=== PATIENT | male | born 1965 | race Two or more races ===

== ENCOUNTER 2019-04-20 18:29 | Emergency (ER) | payer MEDICAID ==
[~2019-04-20] VITALS: Ht 160 cm; Wt 83.5 kg
[2019-04-20] MEDS ORDERED: PROPRANOLOL HCL10 MG ORAL (18:41)
[2019-04-20] MEDS ORDERED: SPIRONOLACTONE100 MG ORAL (18:41)
[2019-04-20] MEDS ORDERED: FUROSEMIDE20 M1 ORAL (18:41)
--- NOTE | 2019-04-20 18:43 | NUR ---
ED Nurse Note: Pt walked into ED from home c/o abdominal pain, nausea, cough, diarrhea x 1 week. Pt says he threw up once a week ago, but not since. Pt hasn't been able to eat as much as normal. He says he just started 4 new medications a week ago including spironolactone, lasix, daily-vte, and propanolol. Pt placed on case monitor. Respirations even and unlabored on room air. A+Ox4. at bedside.
[2019-04-20] MEDS ORDERED: DAILY VITE1 EACH ORAL (18:47)
--- NOTE | 2019-04-20 18:55 | NUR ---
ED Nurse Note: Pt's sinus merry on the monitor @ 49-51 bpm
[2019-04-20 18:59] VITALS: BP 115/68
--- NOTE | 2019-04-20 19:09 | NUR ---
HAND-OFF: Report given to PRANAY Contreras.
--- NOTE | 2019-04-20 19:09 | NUR ---
ED Nurse Note: Received report from PRANAY Smith.
--- NOTE | 2019-04-20 19:10 | NUR ---
ED Nurse Note: Patient provided with urinal for urine sample, pt stated unable to provide urine at this time.
[2019-04-20 19:20] LABS: HEMATOCRIT 46.6 % (42.0-52.0); HEMOGLOBIN 16.5 G/DL (14.2-18.0); MEAN CORPUSCULAR VOLUME 92 FL (80-99); PLATELET COUNT 99 K/UL (150-450); RED BLOOD COUNT 5.09 M/UL (4.70-6.10); RED CELL DISTRIBUTION WIDTH 12.2 % (11.6-14.8); WHITE BLOOD COUNT 14.7 K/UL (4.8-10.8)
[2019-04-20 19:44] LABS: ANION GAP 5 mmol/L (5-15); BLOOD UREA NITROGEN 15 mg/dL (7-18); CALCIUM 8.2 MG/DL (8.5-10.1); CARBON DIOXIDE 24 MMOL/L (21-32); CHLORIDE 108 MMOL/L (98-107); CREATININE 0.8 MG/DL (0.55-1.30); POTASSIUM 4.8 MMOL/L (3.5-5.1); SODIUM 137 MMOL/L (136-145)
[2019-04-20 19:58] LABS: ALANINE AMINOTRANSFERASE 39 U/L (12-78); ALBUMIN 2.3 G/DL (3.4-5.0); ALBUMIN/GLOBULIN RATIO 0.7 (1.0-2.7); ALKALINE PHOSPHATASE 223 U/L (46-116); ASPARTATE AMINO TRANSFERASE 57 U/L (15-37); BILIRUBIN,TOTAL 2.6 MG/DL (0.2-1.0)
[2019-04-20 20:02] LABS: BILIRUBIN,DIRECT 0.9 MG/DL (0.0-0.3)
--- NOTE | 2019-04-20 20:52 | NUR ---
ED Nurse Note: urine collected and sent to lab.
[2019-04-20 21:07] LABS: APPEARANCE,URINE CLEAR; BILIRUBIN, URINE NEGATIVE (NEGATIVE); GLUCOSE, URINE (UA) NEGATIVE (NEGATIVE); KETONES,URINE NEGATIVE (NEGATIVE); LEUKOCYTE ESTERASE ,URINE NEGATIVE (NEGATIVE); NITRITE,URINE NEGATIVE (NEGATIVE); PH,URINE 5 (4.5-8.0); PROTEIN,URINE NEGATIVE (NEGATIVE); UROBILINOGEN,URINE 1 MG/DL (0.0-1.0)
[2019-04-20 21:09] LABS: COLOR,URINE YELLOW
--- NOTE | 2019-04-20 21:45 | Emergency Room Report ---
History of Present Illness General Chief Complaint: Abdominal Pain Source: Patient (Fidel Odonnell M.D.) Source: Patient (Gulshan Mahmood MD) Present Illness HPI 54-year-old male presents with acute abdominal pain generalized, with diarrhea, no blood, abdominal pain described as achy no known aggravating relieving factors severity is mild, intermittent, patient presents for evaluation (Gulshan Mahmood MD) Allergies: Coded Allergies: No Known Allergies (Unverified , 04/20/19) Patient History Past Medical History: see triage record Reviewed Nursing Documentation: PMH: Agreed; PSxH: Agreed (Gulshan Mahmood MD) Nursing Documentation-PMH Hx Hypertension: Yes (Fidel Odonnell M.D.) Review of Systems All Other Systems: negative except mentioned in HPI (Gulshan Mahmood MD) Physical Exam Vital Signs Date Time Temp Pulse Resp B/P (MAP) Pulse Ox O2 Delivery O2 Flow Rate FiO2 04/20/19 18:35 98.1 56 17 111/71 (84) 95 Room Air (Fidel Odonnell M.D.) Vital Signs Date Time Temp Pulse Resp B/P (MAP) Pulse Ox O2 Delivery O2 Flow Rate FiO2 04/20/19 18:35 98.1 56 17 111/71 (84) 95 Room Air Sp02 EP Interpretation: reviewed, normal General Appearance: well appearing, no apparent distress, alert Head: normocephalic, atraumatic Eyes: bilateral eye PERRL, bilateral eye EOMI ENT: uvula midline, moist mucus membranes Neck: supple, thyroid normal, supple/symm/no masses Respiratory: lungs clear, no respiratory distress, no retraction, no accessory muscle use Cardiovascular #1: normal peripheral pulses, regular rate, rhythm, no edema, no gallop, no murmur Gastrointestinal: non tender, soft, no guarding, no rebound Musculoskeletal: normal inspection Neurologic: alert, oriented x3 Psychiatric: mood/affect normal Skin: no rash, warm/dry (Gulshan Mahmood MD) Medical Decision Making Diagnostic Impression: Primary Impression: Enteritis ER Course 54-year-old male presents with abdominal pain x1 day, signout was received from Dr. Odonnell Patient found to have enteritis on CT, patient given Augmentin here Abdominal exam at 12:30 AM, abdomen is soft nontender no rebound no guarding Will provide patient with 10 days of Augmentin Disposition home with return precautions Laboratory Tests Test 04/20/19 19:05 04/20/19 20:49 White Blood Count 14.7 K/UL (4.8-10.8) H Red Blood Count 5.09 M/UL (4.70-6.10) Hemoglobin 16.5 G/DL (14.2-18.0) Hematocrit 46.6 % (42.0-52.0) Mean Corpuscular Volume 92 FL (80-99) Mean Corpuscular Hemoglobin 32.5 PG (27.0-31.0) H Mean Corpuscular Hemoglobin Concent 35.4 G/DL (32.0-36.0) Red Cell Distribution Width 12.2 % (11.6-14.8) Platelet Count 99 K/UL (150-450) L Mean Platelet Volume 8.7 FL (6.5-10.1) Neutrophils (%) (Auto) % (45.0-75.0) Lymphocytes (%) (Auto) % (20.0-45.0) Monocytes (%) (Auto) % (1.0-10.0) Eosinophils (%) (Auto) % (0.0-3.0) Basophils (%) (Auto) % (0.0-2.0) Differential Total Cells Counted 100 Neutrophils % (Manual) 80 % (45-75) H Lymphocytes % (Manual) 7 % (20-45) L Monocytes % (Manual) 9 % (1-10) Eosinophils % (Manual) 0 % (0-3) Basophils % (Manual) 0 % (0-2) Band Neutrophils 4 % (0-8) Platelet Estimate Decreased L Platelet Morphology Normal Red Blood Cell Morphology Normal Sodium Level 137 MMOL/L (136-145) Potassium Level 4.8 MMOL/L (3.5-5.1) Chloride Level 108 MMOL/L (98-107) H Carbon Dioxide Level 24 MMOL/L (21-32) Anion Gap 5 mmol/L (5-15) Blood Urea Nitrogen 15 mg/dL (7-18) Creatinine 0.8 MG/DL (0.55-1.30) Estimate Glomerular Filtration Rate > 60 mL/min (>60) Glucose Level 124 MG/DL (74-106) H Calcium Level 8.2 MG/DL (8.5-10.1) L Total Bilirubin 2.6 MG/DL (0.2-1.0) H Direct Bilirubin 0.9 MG/DL (0.0-0.3) H Aspartate Amino Transferase (AST) 57 U/L (15-37) H Alanine Aminotransferase (ALT) 39 U/L (12-78) Alkaline Phosphatase 223 U/L (46-116) H Total Protein 5.7 G/DL (6.4-8.2) L Albumin 2.3 G/DL (3.4-5.0) L Globulin 3.4 g/dL Albumin/Globulin Ratio 0.7 (1.0-2.7) L Lipase 274 U/L (73-393) Urine Color Yellow Urine Appearance Clear Urine pH 5 (4.5-8.0) Urine Specific [place] 1.010 (1.005-1.035) Urine Protein Negative (NEGATIVE) Urine Glucose (UA) Negative (NEGATIVE) Urine Ketones Negative (NEGATIVE) Urine Blood 1+ (NEGATIVE) H Urine Nitrite Negative (NEGATIVE) Urine Bilirubin Negative (NEGATIVE) Urine Urobilinogen 1 MG/DL (0.0-1.0) H Urine Leukocyte Esterase Negative (NEGATIVE) Urine RBC 0-2 /HPF (0 - 0) H Urine WBC 0-2 /HPF (0 - 0) Urine Squamous Epithelial Cells Occasional /LPF Urine Bacteria Few /HPF (NONE) (Gulshan Mahmood MD) CT/MRI/US Diagnostic Results CT/MRI/US Diagnostic Results : Impression Procedure: CT Abdomen Pelvis w/Contrast CT ABDOMEN + PELVIS With Contrast: Morphologic features of cirrhosis with stigmata of portal venous hypertension, including upper abdominal portosystemic venous collaterals and splenomegaly. Nonspecific thickening of the duodenum and ascending colon may be related to nonspecific duodenitis/colitis or portal enterocolopathy/enterocolitis. No appendicitis, diverticulitis, or free air. Cholelithiasis without biliary dilatation. Pancreas and kidneys are unremarkable. Patient : IRCHARDEDWARDO PERAZAENIO Referring Physician: Fidel Odonnell M.D. ID Number: [id number] Service Date: 04/20/19 : 1965 Report Date: 04/20/19 Gender: M Accession No.: [id number] Location: EMR Procedure: US ABD Complete US ABDOMEN: COMPARISON: CT 04/20/2019 Limited exam. Gallstones are present in the contracted gallbladder. No biliary dilatation. The liver is diffusely nodular. Right kidney is unremarkable. Dictated By: Kiki Syed MD Electronically Signed By: Signed Date/Time CC: Dictated By: Kiki Syed MD Electronically Signed By: Signed Date/Time CC: (Gulshan Mahmood MD) Last Vital Signs Date Time Temp Pulse Resp B/P (MAP) Pulse Ox O2 Delivery O2 Flow Rate FiO2 04/20/19 18:59 98.1 48 17 115/68 98 Room Air (Fidel Odonnell M.D.) Disposition: HOME, SELF-CARE Condition: Stable Scripts Ondansetron (Zofran) 4 Mg Tablet 4 MG ORAL Q8H PRN for Nausea & Vomiting, #10 TAB 0 Refills Prov: Gulshan Mahmood MD 04/21/19 Amoxicillin/Potassium Clav 875-125* (AUGMENTIN 875-125 TABLET*) 1 Each Tablet 1 TAB ORAL TWICE A DAY, #20 TAB Prov: Gulshan Mahmood MD 04/21/19 Referrals: JUANA ELMORE M.D. (PCP) [facility] Getachew Mclain [facility] Patient Instructions: Colitis Additional Instructions: The patient was provided with discharge instructions, notified to follow-up with a primary care doctor and or specialist in the next 24-48 hours, and to return to the ED if they have worsening of their symptoms. Please note that this report is being documented using [employer] technology. This can lead to erroneous entry secondary to incorrect interpretation by the dictating instrument. Fidel Odonnell M.D. Apr 20, 2019 21:45 Gulshan Mahmood MD Apr 21, 2019 00:40
[2019-04-20 21:48] VITALS: BP 111/52
--- NOTE | 2019-04-20 22:10 | NUR ---
ED Nurse Note: Patient taken to ultrasound.
[2019-04-20] MEDS ORDERED: Omnipaque-300 100ml vial INJ PRN (22:45)
[2019-04-20 23:49] VITALS: BP 116/65
--- NOTE | 2019-04-20 23:49 | Diagnostic Imaging Report ---
Indication: Abdominal pain Technique: US ABD Complete Comparison: None Findings: Limited exam due to overlying bowel gas. The liver demonstrates a nodular contour and diffuse heterogeneity. No focal hepatic mass lesion appreciated sonographically. Portal vein appears patent. Common bile duct is normal in caliber. Gallstones noted in a contracted gallbladder. Kidneys demonstrate normal echogenicity. No hydronephrosis or sonographically appreciable renal stone noted bilaterally. Pancreas is not visualized due to overlying bowel gas. Spleen is poorly evaluated but appears unremarkable. Impression: Limited exam. * Nodular contour of the liver and heterogeneous echotexture suggesting cirrhosis. * Gallstones noted in a contracted gallbladder. This corresponds with the statrad preliminary report.
--- NOTE | 2019-04-20 23:52 | Diagnostic Imaging Report ---
Indication: Abdominal pain Technique: CT of the abdomen and pelvis utilizing automated exposure control with intravenous contrast. Venous scanning performed. Axial, sagittal and coronal reformats presented. CT dose: Total DLP 1371.9 mGycm; CTDI vol 23.9 mGy Comparison: None Findings: Dependent atelectasis noted in the lung bases. Heart appears enlarged. No pericardial effusion identified. The liver is nodular in contour compatible with cirrhosis. There is diffusely heterogeneous attenuation of the liver which may be related to cirrhosis. Possibility of a subtle infiltrating mass however cannot entirely be excluded and follow-up evaluation with dynamic multiphase liver protocol contrast-enhanced CT or MRI of the liver commended. The portal vein appears patent. There is sequela of portal hypertension with large perigastric and periesophageal varices as well as splenomegaly. There is also trace perihepatic ascites. There is cholelithiasis. No definite CT evidence to suggest acute cholecystitis. No appreciable biliary ductal dilatation. Adrenal glands are grossly unremarkable. Pancreas is unremarkable in appearance. The kidneys enhance symmetrically. There is no urinary tract stone, hydronephrosis or perinephric stranding. The bladder is decompressed, precluding reliable evaluation. Prostate isn't mildly prominent with some coarse central calcifications. There is nonspecific thickening of the wall the stomach and duodenum which may be related to portal hypertensive gastropathy/adenopathy or additional nonspecific Velazquez enteritis. There is also some nonspecific thickening of the wall of the esophagus and ascending colon with a similar differential. There is colonic diverticulosis without evidence to suggest an acute diverticulitis. The appendix is normal in caliber. No evidence of appendicitis. There is no free intraperitoneal air or evidence of small bowel obstruction. Abdominal aorta is normal in caliber. There are overall mild atherosclerotic vascular calcifications. There are degenerative changes in the spine. No acute osseous abnormality. IMPRESSION: * Cirrhosis and stigmata of portal hypertension including splenomegaly, large portosystemic varices (perigastric and periesophageal) and trace perihepatic ascites. * Nonspecific thickening of the wall of the esophagus, stomach, duodenum and ascending colon which may be related to portal hypertension versus a nonspecific gastroenterocolitis. * No evidence of bowel obstruction. No free intraperitoneal air. * Diffusely heterogeneous hepatic attenuation likely related to cirrhosis/fibrotic changes. Possibility of a subtle infiltrating mass cannot entirely be excluded and follow-up evaluation with dynamic multiphase liver protocol contrast-enhanced CT or MRI of the liver commended. * Lithiasis without evidence of acute cholecystitis. * Diverticulosis without evidence of diverticulitis. The CT scanner at [facility] is accredited by the [employer] and the scans are performed using protocols designed to limit radiation exposure to as low as reasonably achievable to attain images of sufficient resolution adequate for diagnostic evaluation.
[2019-04-21] MEDS ORDERED: ZOFRAN4 MG ORAL (00:40)
[2019-04-21] MEDS ORDERED: AUGMENTIN 875-1 EAC1 ORAL (00:40)
[2019-04-21 00:45] VITALS: BP 112/60
[2019-04-21] MEDS ORDERED: Augmentin 875mg Tab ORAL ONE (00:45)
--- NOTE | 2019-04-21 00:45 | NUR ---
ER DISCHARGE NOTE: Patient is cleared to be discharged per ERMD, pt is aox4, on room air, with stable vital signs. pt was given dc and prescription instructions, pt was able to verbalize understanding, pt id band and iv site removed without complications. pt is able to ambulate with steady gait. pt took all belongings.
== END 2019-04-21 00:45 | disposition home or self-care (01) ==
LOC: EMR 20:08
DX: K52.9 Noninfective gastroenteritis and colitis, unspecified (principal); I10 Essential (primary) hypertension; K80.20 Calculus of gallbladder without cholecystitis without obstruction
CPT/HCPCS: 36415; 74177; 76700; 80053; 81003; 82248; 83690; 85007; 85025; 96360; J7030; Q9967; Z7502; 99284